=== PATIENT | female | born 2000 | race Hispanic/Latino ===

== ENCOUNTER 2023-11-21 13:44 | Day surgery (SDC) | payer BC, OTHER ==
[2023-11-21] MEDS ORDERED: hydrALAZINE 20 MG/ML VIAL SLOW IVP PRN (14:22)
[2023-11-21 14:42] LABS: #Basophils 0.02 10x3/uL (0.0-0.2); #Eosinphils 0.07 10x3/uL (0.0-0.5); #Monocytes 0.53 10x3/uL (0.0-1.1); #Neutrophils 5.84 10x3/uL (1.5-8.4); %Basophils 0.2 % (0.0-2.0); %Eosinophils 0.8 % (0.0-6.0); %Lymphocytes 24.2 % (18.0-47.0); %Monocytes 6.2 % (0.0-10.0); %Neutrophils 67.9 % (40.0-75.0); Hematocrit 35.8 % (34.9-44.5); Hemoglobin 12.2 g/dL (12.0-15.5); Mean Corpuscular HGB CONC 34.1 g/dL (32.0-36.0); Mean Corpuscular Hemoglobin 30.5 pg (27.0-33.0); Mean Corpuscular Volume 89.5 fL (81.6-98.3); Mean Platelet Volume 10.7 fL (7.4-10.4); Platelet Count 183 10x3/uL (150-450); RBC Distribution Width 12.1 % (11.5-14.5); White Blood Cell (WBC) Count 8.6 10x3/uL (3.5-10.5)
[2023-11-21 15:14] VITALS: BMI 33.2
[2023-11-21 15:17] LABS: ALT (SGPT) 19 U/L (8-55); AST (SGOT) 24 U/L (5-34); Albumin 2.7 g/dL (3.5-5.0); Alkaline Phosphatase 122 U/L (40-110); Anion Gap 12 mmol/L (10-20); BUN (Urea Nitrogen) 12 mg/dL (7.0-18.7); Bilirubin, Total 0.3 mg/dL (0.2-1.2); Calc. Creatinine Clearance 167 mL/min (70-130); Calcium 8.9 mg/dL (7.8-10.44); Carbon Dioxide 20 mmol/L (22-29); Chloride 108 mmol/L (98-107); Creatinine, Urine 57.93 mg/dL (47-110); Estimated GFR 126; Globulin 3.1 g/dL (2.4-3.5); Glucose 116 mg/dL (70-105); Potassium 4.2 mmol/L (3.5-5.1); Protein, Total 5.8 g/dL (6.0-8.3); Protein, Urine Random Quant Less than 10 mg/dL (1-14); Sodium 136 mmol/L (136-145)
== END 2023-11-21 16:48 | disposition home or self-care (01) ==
LOC: CSHLD/OP 13:44
PROVIDERS: ATTEND Obstetrics & Gynecology
DX: O99.891 Other specified diseases and conditions complicating pregnancy (principal); R03.0 Elevated blood-pressure reading, without diagnosis of hypertension; O24.419 Gestational diabetes mellitus in pregnancy, unspecified control; Z3A.37 37 weeks gestation of pregnancy
CPT/HCPCS: 80053; 82570; 84156; 85025; 99284

== ENCOUNTER 2023-12-04 18:00 | Inpatient (IN) | payer OTHER ==
[2023-12-04 19:00] VITALS: BMI 33.4
[2023-12-04] MEDS ORDERED: hydrALAZINE 20 MG/ML VIAL SLOW IVP PRN (19:47)
[2023-12-04] MEDS ORDERED: Lidocaine 1% (PF) 30 ML VIAL SC PRN (19:47)
[2023-12-04] MEDS ORDERED: Ondansetron PF 4 MG/2 ML Vial IVP PRN (19:47)
[2023-12-04] MEDS ORDERED: Tranexamic Acid 1,000 MG/10 ML VIAL IVP PRN (19:47)
[2023-12-04] MEDS ORDERED: Ibuprofen 800 MG TAB PO PRN (19:47)
[2023-12-04] MEDS ORDERED: Promethazine HCl 25 MG/ML VIAL IM PRN (19:47)
[2023-12-04] MEDS ORDERED: Oxytocin 30 units/NS 500 ML 500 ML IV SCH (20:00)
[2023-12-04] MEDS ORDERED: Lactated Ringer's 1,000 ML IV SCH (20:00)
[2023-12-04] MEDS: Misoprostol 100 MCG TAB VAG SCH (20:16)
[2023-12-04 20:37] LABS: Hematocrit 35.1 % (34.9-44.5); Hemoglobin 12.8 g/dL (12.0-15.5); Mean Corpuscular HGB CONC 36.5 g/dL (32.0-36.0); Mean Corpuscular Hemoglobin 31.8 pg (27.0-33.0); Mean Corpuscular Volume 87.1 fL (81.6-98.3); Mean Platelet Volume 10.7 fL (7.4-10.4); Platelet Count 167 10x3/uL (150-450); RBC Distribution Width 12.1 % (11.5-14.5); Red Blood Cell (RBC) Count 4.03 10x6/uL (3.90-5.03); White Blood Cell (WBC) Count 11.7 10x3/uL (3.5-10.5)
[2023-12-04] MEDS ORDERED: metFORMIN 500 MG TAB PO SCH (20:45)
[2023-12-04 20:47] LABS: ALT (SGPT) 19 U/L (8-55); AST (SGOT) 22 U/L (5-34); Albumin 2.9 g/dL (3.5-5.0); Alkaline Phosphatase 147 U/L (40-110); Anion Gap 13 mmol/L (10-20); BUN (Urea Nitrogen) 13 mg/dL (7.0-18.7); Bilirubin, Total 0.3 mg/dL (0.2-1.2); Calc. Creatinine Clearance 152 mL/min (70-130); Calcium 9.5 mg/dL (7.8-10.44); Carbon Dioxide 20 mmol/L (22-29); Chloride 104 mmol/L (98-107); Estimated GFR 118; Globulin 3.9 g/dL (2.4-3.5); Glucose 83 mg/dL (70-105); Potassium 3.7 mmol/L (3.5-5.1); Protein, Total 6.8 g/dL (6.0-8.3); Sodium 133 mmol/L (136-145)
[2023-12-04 23:23] LABS: HBsAg Index 0.18 S/CO (0-0.99); Hep B Surf Ag - L&D Non-Reactive S/CO (NonReactive)
[2023-12-04 23:25] LABS: Syphilis Antibody Nonreactive (Nonreactive); Syphilis Antibody Index 0.07 S/CO (<1.00 Non-Reactive)
[2023-12-05 00:16] LABS: Creatinine, Urine 42.54 mg/dL (47-110)
[2023-12-05] MEDS ORDERED: Oxytocin 30 units/NS 500 ML 500 ML IV SCH (08:45)
[2023-12-05] MEDS: Oxytocin 30 units/NS 500 ML 500 ML IV SCH (09:19)
[2023-12-05] MEDS: metFORMIN 500 MG TAB PO SCH (21:38)
[2023-12-06] MEDS: Misoprostol 100 MCG TAB PO SCH (04:52)
[2023-12-06] MEDS: metFORMIN 500 MG TAB PO SCH ×2 (08:05→17:28)
[2023-12-06] MEDS: fentaNYL 50 mcg/mL 1 mL Vial SLOW IVP PRN (14:54)
[2023-12-06] MEDS: fentaNYL/Ropivacaine Epidural 100 ML ONE (15:44)
[2023-12-06] MEDS ORDERED: Promethazine HCl 25 MG/ML VIAL IM PRN (15:54)
[2023-12-06] MEDS ORDERED: Moisturizing Cream (Eucerin) 113 GM JAR TOP PRN (15:54)
[2023-12-06] MEDS ORDERED: Naloxone HCl 0.4 mg/ml Vial IVP PRN ×2 (15:54)
[2023-12-06] MEDS ORDERED: Lactated Ringer's 500 ML IV PRN (15:54)
[2023-12-06] MEDS ORDERED: ePHEDrine Sulfate 50 MG/10 ML VIAL SLOW IVP PRN (15:54)
[2023-12-06] MEDS ORDERED: Communication Order-Pharmacy FS SCH (16:00)
[2023-12-07] MEDS: fentaNYL 2 mcg/Ropivacaine 0.2% Epidural 100 ML CADD EPIDURAL SCH (04:10)
[2023-12-07] MEDS: diphenhydrAMINE 50 MG/ML VIAL IVP PRN (07:30)
[2023-12-07] MEDS: Carboprost 250 MCG/ML AMP IM PRN (10:51)
[2023-12-07] MEDS: Misoprostol 200 MCG TAB PR PRN (10:52)
[2023-12-07] MEDS: Diphenoxylate HCl/Atropine Tablet PO SCH (10:59)
[2023-12-07] MEDS: Acetaminophen 325 MG TAB PO PRN (11:24)
[2023-12-07] MEDS: Ondansetron PF 4 MG/2 ML Vial IVP PRN (12:41)
[2023-12-07] MEDS ORDERED: Milk Of Magnesia 30 ML UDCUP PO PRN (12:51)
[2023-12-07] MEDS ORDERED: Misoprostol 200 MCG TAB VAG PRN (12:51)
[2023-12-07] MEDS ORDERED: Bisacodyl 10 MG SUPP PR PRN (12:51)
[2023-12-07] MEDS ORDERED: hydrALAZINE 20 MG/ML VIAL SLOW IVP PRN (12:51)
[2023-12-07] MEDS ORDERED: Preparation H Ointment 28 GM TUBE PR PRN (12:51)
[2023-12-07] MEDS: Labetalol HCl 100 MG/20 ML VIAL SLOW IVP SCH (13:06)
[2023-12-07] MEDS: Ibuprofen 800 MG TAB PO SCH (13:39)
[2023-12-07] MEDS: Carboprost 250 MCG/ML AMP ONE (13:40)
[2023-12-07] MEDS: Ferrous Sulfate 325 MG TAB PO SCH (13:41)
[2023-12-07] MEDS: Carboprost 250 MCG/ML AMP IM SCH (13:41)
[2023-12-07] MEDS: Benzocaine-Menthol 82.5 ML CAN TOP PRN (16:38)
[2023-12-07] MEDS: Docusate 100 MG CAP PO SCH (21:20)
[2023-12-08] MEDS: Boostrix 0.5 ML (Tdap) VIAL (>/=7 yrs of age) IM ONE (07:38)
[2023-12-08] MEDS: Prenatal Vitamin 1 TAB PO SCH (08:42)
[2023-12-08] MEDS: Acetaminophen 325 MG TAB PO SCH (15:25)
[2023-12-09] MEDS: Ferrous Sulfate 325 MG TAB PO SCH (07:56)
[2023-12-09 09:51] VITALS: BP 131/85; TEMP 98
== END 2023-12-09 12:05 | disposition home or self-care (01) | DRG 807 ==
LOC: CSHLD 18:26 → CSHPP 12-07 13:55
PROVIDERS: ADMIT Family Medicine; ATTEND Family Medicine
PROC: 10907ZC Drainage of Amniotic Fluid, Therapeutic from Products of Conception, Via Natural or Artificial Opening (ICD-10-PCS; 2023-12-06)
PROC: 10H07YZ Insertion of Other Device into Products of Conception, Via Natural or Artificial Opening (ICD-10-PCS; 2023-12-06)
PROC: 10E0XZZ Delivery of Products of Conception, External Approach (ICD-10-PCS; principal; 2023-12-07)
PROC: 0UQMXZZ Repair Vulva, External Approach (ICD-10-PCS; 2023-12-07)
DX: O24.425 Gestational diabetes mellitus in childbirth, controlled by oral hypoglycemic drugs (principal); Z37.0 Single live birth; Z3A.39 39 weeks gestation of pregnancy; O14.04 Mild to moderate pre-eclampsia, complicating childbirth; O71.82 Other specified trauma to perineum and vulva; Z79.84 Long term (current) use of oral hypoglycemic drugs; O13.4 Gestational [pregnancy-induced] hypertension without significant proteinuria, complicating childbirth
CPT/HCPCS: 36416; 51701; 51702; 80053; 82570; 84156; 85027; 86780; 86850; 86900; 86901; 87340; J1200; J2405; J2590; J3010; J3490